=== PATIENT | male | born 1950 | race Caucasian/White ===

== ENCOUNTER 2018-07-09 05:00 | Inpatient (IN) | payer OTHER ==
[~2018-07-09] VITALS: Ht 162.6 cm; Wt 83.9 kg
[~2018-07-09 05:00] MED LIST: ASA81 MG PO; FINASTERIDE5 MG PO; GLIMEPIRIDE4 MG PO; LANTUS SOL100 UNIT/1; LOTREL 10-40 M1 EACH PO; METFORMIN HCL1000 M2 PO; NEURONTIN600 MG PO; OXYBUTYNIN CHLOR5 MG PO; TAMS0.4C PO
[2018-07-09] MEDS ORDERED: DOCUSATE SODIU100 MG PO (14:08)
[2018-07-09] MEDS ORDERED: CLONAZEPAM0.5 MG PO (14:10)
[2018-07-09] MEDS ORDERED: PERCOCET 5-3251 EACH PO (14:10)
== END 2018-07-10 14:12 | disposition home or self-care (01) | DRG 454 ==
LOC: O/R 05:00 → SURH 10:12 → SURG 15:50
PROVIDERS: ADMIT Orthopaedic Surgery Orthopaedic Surgery of the Spine
PROC: 0RG2071 Fusion of 2 or more Cervical Vertebral Joints with Autologous Tissue Substitute, Posterior Approach, Posterior Column, Open Approach (ICD-10-PCS; 2018-07-09)
PROC: 0RT30ZZ Resection of Cervical Vertebral Disc, Open Approach (ICD-10-PCS; 2018-07-09)
PROC: 07DS3ZZ Extraction of Vertebral Bone Marrow, Percutaneous Approach (ICD-10-PCS; 2018-07-09)
PROC: 4A12X4Z Monitoring of Cardiac Electrical Activity, External Approach (ICD-10-PCS; 2018-07-09)
PROC: 0RG20A0 Fusion of 2 or more Cervical Vertebral Joints with Interbody Fusion Device, Anterior Approach, Anterior Column, Open Approach (ICD-10-PCS; principal; 2018-07-09 01:15)
DX: M47.12 Other spondylosis with myelopathy, cervical region (principal); M50.021 Cervical disc disorder at C4-C5 level with myelopathy